=== PATIENT | male | born 1950 | race American Indian/Alaskan Native ===

== ENCOUNTER 2016-09-02 12:12 | Day surgery (SDC) | payer OTHER ==
[2016-09-01 07:50] VITALS: BMI 20.8
[2016-09-02 13:14] VITALS: RESP 20
[2016-09-02] MEDS ORDERED: Propofol 10 mg/ml Inj (20 ML) ONE (14:58)
[2016-09-02] MEDS ORDERED: Iodixanol 320 MG/ML 200 ML BOTTLE IV ONE (15:18)
[2016-09-02] MEDS ORDERED: Lidocaine 2% Inj (20ml) ONE (15:19)
[2016-09-02] MEDS ORDERED: Sodium Chloride 0.9% 1,000 ML IV ONE (15:30)
--- NOTE | 2016-09-02 16:31 | PCM.SURG1 ---
Surgeon's Initial Post Op Note - Surgeon's Notes Surgeon: ana rosa Assistant Controller: 0 Type of Anesthesia: IV Sedation Anesthesia Administered By: thea Pre-Operative Diagnosis: gangrene left foot Operative Findings: flush left sfa occusion/ reconstituion below Randy's canal. single vessel runoff via peroneal. twiggy PT and DP Post-Operative Diagnosis: same Operation Performed: aortofemoral angiogram with selective catherization of left femoral artery. pressure closure right groin Specimen/Specimens Removed: 0 Estimated Blood Loss: EBL {In ML}: 15 Blood Products Given: N/A Drains Used: No Drains Post-Op Condition: Good Date of Surgery/Procedure: 09/02/16 Time of Surgery/Procedure: 16:31
[2016-09-02 17:25] VITALS: TEMP 97
[2016-09-02 18:28] VITALS: BP 155/70; PULSE 67
[2016-09-02 18:29] VITALS: O2SAT 99
--- NOTE | 2016-09-21 12:25 | PCM.OP ---
Surgeon: Dr. Rocha Assistants: none Anesthesiologist: Roz Date of Operation : 09/02/2016 Preoperative Diagnosis: Gangrene of left foot Postoperative Diagnosis: Same Procedure: Aortofemoral angiogram with selective catheterization of the left femoral artery. No intervention Indications: 65 yo male, diabetic, hypertensive, previous stroke 6 years ago with gangrene of left foot. Operative findings: The aorta, renal arteries, iliac arteries, common and external iliac arteries all free of significant occlusive disease. On the right side, the superficial femoral artery is widely patent as well as the profunda femoris stent at the level of the knee. Detailed pictures were not taken from this level down due to patient's body habitus. On the left side, the superficial femoral artery occluded with a flush occlusion and had a well developed profunda. The popliteal artery is reconstituted just below Randy's Canal with one vessel runoff of the peroneal artery and poor restitution, but visible restitution of the small twiggy posterior tibial and dorsalis pedis. The significant vessel of the foot is a single vessel runoff of the perineal artery. ____ and a catheter is positioned in the proximal portion of the profunda femoris artery. Detailed pictures down to the level of the foot were taken at that point. With the above mentioned findings. Catheter was then removed. No attempt was made at intervention given the flush occlusion, ____. Procedure is then terminated. Copy of dictation to be sent to Nina BUCHANAN
== END 2016-09-02 20:40 | disposition home or self-care (01) ==
LOC: C.SPRAD 12:12
PROVIDERS: ATTEND Surgery Vascular Surgery
DX: I77.1 Stricture of artery (principal)
CPT/HCPCS: 36140; 82948; J2001; J2704; J3010; J7040; Q9966